=== PATIENT | female | born 1955 | race Caucasian/White ===

== ENCOUNTER 2017-10-21 08:22 | Emergency (ER) | payer SELFPAY, OTHER | END 2017-10-21 10:19 | disposition home or self-care (01) | LOC: ER 08:22 | DX: S89.91XA Unspecified injury of right lower leg, initial encounter (principal); W01.0XXA Fall on same level from slipping, tripping and stumbling without subsequent striking against object, initial encounter; Y93.89 Activity, other specified; Y92.89 Other specified places as the place of occurrence of the external cause; Y99.8 Other external cause status | CPT/HCPCS: 73562; 73700; 99284-25 ==

== ENCOUNTER 2018-03-16 08:00 | Emergency (ER) | payer OTHER | END 2018-03-16 08:46 | disposition home or self-care (01) | LOC: ER 08:46 | DX: M25.561 Pain in right knee (principal); E03.9 Hypothyroidism, unspecified | CPT/HCPCS: 99283 ==

== ENCOUNTER → 2018-08-21 | Outpatient (CLI) | payer OTHER ==
[2018-03-16 08:00] VITALS: BP 151/110
[~2018-08-21] MED LIST: DICL50TA2 PO; LEVO25TA55 PO; TRAM50TA PO
--- NOTE | 2018-08-21 12:40 | CARD ---
MR#: [id number] Date of Study: 08/21/2018 Ordering Physician: RONNIE DOMINIQUE, Referring Physician: RONNIE DOMINIQUE, Tech: Mandy Nevarez APPROVED REPORT EXAM: Two-dimensional and M-mode echocardiogram with Doppler and color Doppler. Other Information Quality : AverageHR: 113bpm INDICATION Palpitations Murmur RISK FACTORS Hypertension 2D DIMENSIONS RVDd2.7 (2.9-3.5cm)Left Atrium(2D)3.1 (1.6-4.0cm) IVSd0.8 (0.7-1.1cm)Aortic Root(2D)2.9 (2.0-3.7cm) LVDd4.4 (3.9-5.9cm)LVOT Diameter2.1 (1.8-2.4cm) PWd0.8 (0.7-1.1cm)LVDs2.1 (2.5-4.0cm) FS (%) 52.9 %SV74.1 ml LVEF(%)84.1 (>50%) Aortic Valve AoV Peak Rikki.145.4cm/sAoV VTI21.9cm AO Peak GR.8.5mmHgLVOT Peak Rikki.1.0cm/s LVOT VTI 17.30cmAO Mean GR.5mmHg NANDO (VMAX)0.51ea9SYA (VTI)2.62cm2 Mitral Valve MV E Inactpmh13.0cm/sMV DECEL TTVR518sd MV A Izjbvvll800.0cm/sMV ADN14of E/A Ratio0.6MVA (PHT)4.54cm2 TDI E/Lateral E'7.5E/Medial E'7.0 Pulmonary Valve PV Peak Ohsodcyo172.2cm/sPV Peak Grad.7mmHg Tricuspid Valve TR P. Hrbljpek626xa/sRAP TBTFQCMI8faVm TR Peak Gr.36oxDiFECU13erDh Pulmonary Vein S1 Oyoetdgn74.0cm/sD2 Tbpjanux93.2cm/s LEFT VENTRICLE The left ventricle is normal size. There is normal left ventricular wall thickness. The left ventricu lar systolic function is normal. The Ejection Fraction is 65%. There is normal LV segmental wall joyce on. Transmitral Doppler flow pattern is Grade I-abnormal relaxation pattern. RIGHT VENTRICLE The right ventricle is normal size. There is normal right ventricular wall thickness. The right ventr icular systolic function is normal. ATRIA The left atrium size is normal. The right atrium size is normal. The interatrial septum is intact wit h no evidence for an atrial septal defect or patent foramen ovale as noted on 2-D or Doppler imaging. AORTIC VALVE The aortic valve is normal in structure and function. Doppler and Color Flow revealed no significant aortic regurgitation. There is no significant aortic valvular stenosis. MITRAL VALVE The mitral valve is normal in structure and function. There is no evidence of mitral valve prolapse. There is no mitral valve stenosis. Doppler and Color-flow revealed trace mitral regurgitation. TRICUSPID VALVE The tricuspid valve is not well visualized. Doppler and Color Flow revealed trace tricuspid regurgita tion. There is no tricuspid valve stenosis. PULMONIC VALVE The pulmonic valve is not well visualized. Doppler and Color Flow revealed trace pulmonic valvular re gurgitation. There is no pulmonic valvular stenosis. GREAT VESSELS The aortic root is normal in size. The IVC is normal in size and collapses >50% with inspiration. PERICARDIAL EFFUSION There is no evidence of significant pericardial effusion. Critical Notification Critical Value: No <Conclusion> The left ventricular systolic function is normal. The Ejection Fraction is 65%. There is normal LV segmental wall motion. Transmitral Doppler flow pattern is Grade I-abnormal relaxation pattern. Trace mitral regurgitation. Trace tricuspid regurgitation. There is no evidence of significant pericardial effusion. Signed by : Luke Bauer, Electronically Approved : 08/21/2018 12:39:25
== END | disposition home or self-care (01) ==
LOC: ECHO 10:33
PROVIDERS: ATTEND Internal Medicine Cardiovascular Disease
DX: R01.1 Cardiac murmur, unspecified (principal); I10 Essential (primary) hypertension
CPT/HCPCS: 93306

== ENCOUNTER → 2019-11-19 | Outpatient (CLI) | payer OTHER ==
[2018-03-16 08:00] VITALS: BP 151/110
--- NOTE | 2019-11-19 16:40 | KCIC ---
EXAM: Chest, 2 views. HISTORY: Bronchitis. COMPARISON: 10/22/2019. FINDINGS: 2 views of the chest are obtained. There is right lobe pneumonia. There is no pleural effusion or pneumothorax. The heart is normal in size. IMPRESSION: Right middle lobe pneumonia. Follow-up to confirm resolution. Electronically signed by: Jackelin Santana MD (11/19/2019 4:37 PM) [id number]
== END | disposition home or self-care (01) ==
LOC: KCIC 14:48
PROVIDERS: ATTEND Internal Medicine
DX: J18.1 Lobar pneumonia, unspecified organism (principal)
CPT/HCPCS: 71046

== ENCOUNTER → 2019-12-13 | Outpatient (CLI) | payer OTHER ==
[2018-03-16 08:00] VITALS: BP 151/110
--- NOTE | 2019-12-13 09:30 | KCIC ---
CHEST PA LATERAL History: Right middle lobe pneumonia. Shortness of breath. Comparison: November 19, 2019 Findings: Decreased right middle lobe consolidation. No pleural effusion. No pneumothorax. Normal heart size. Impression: 1. Decreased right middle lobe consolidation. Recommend follow-up to ensure complete resolution. Electronically signed by: Flip Duarte DO (12/13/2019 9:27 AM) [id number]
== END | disposition home or self-care (01) ==
LOC: KCIC 08:54
PROVIDERS: ATTEND Internal Medicine
DX: J18.1 Lobar pneumonia, unspecified organism (principal)
CPT/HCPCS: 71046

== ENCOUNTER 2020-05-05 09:40 | Emergency (ER) | payer OTHER ==
[~2020-05-05] VITALS: Ht 160 cm; Wt 70.9 kg
[2020-05-05 10:10] VITALS: BP 136/66
--- NOTE | 2020-05-05 10:26 | PHYS DOC ---
Past Medical History Past Medical History: Other Additional Past Medical Histor: hypothyroid Past Surgical History: No Surgical History Smoking Status: Never Smoker Alcohol Use: None Drug Use: None General Adult EDM: Chief Complaint: PAIN ON URINATION HPI: HPI: 64-year-old female with a history of UTIs presents with pain on urination. it has been present for a few days. Worse when she urinates. No alleviating f actors. She denies abdominal pain vomiting or systemic symptoms. She denies fever. Review of systems negative for abdominal pain fever rashes headache chest pain shortness of breath. All other review of systems negative. ED course: 64-year-old female with a UTI discharged with Macrobid. Heart Score: Risk Factors: Risk Factors: DM, Current or recent (<one month) smoker, HTN, HLP, family history of CAD, obesity. Risk Scores: Score 0 - 3: 2.5% MACE over next 6 weeks - Discharge Home Score 4 - 6: 20.3% MACE over next 6 weeks - Admit for Clinical Observation Score 7 - 10: 72.7% MACE over next 6 weeks - Early Invasive Strategies Allergies: Allergies: Allergies Coded Allergies Type Severity Reaction Last Updated Verified No Known Drug Allergies 05/24/16 No Physical Exam: PE: Constitutional: Well developed, well nourished, no acute distress, non-toxic appearance. [] HENT: Normocephalic, atraumatic, bilateral external ears normal, oropharynx moist, no oral exudates, nose normal. [] Eyes: PERRLA, EOMI, conjunctiva normal, no discharge. [] Neck: Normal range of motion, no tenderness, supple, no stridor. [] Cardiovascular:Heart rate regular rhythm, no murmur [] Lungs & Thorax: Bilateral breath sounds clear to auscultation [] Abdomen: Bowel sounds normal, soft, no tenderness, no masses, no pulsatile masses. [] Skin: Warm, dry, no erythema, no rash. [] Back: No tenderness, no CVA tenderness. [] Extremities: No tenderness, no cyanosis, no clubbing, ROM intact, no edema. [] Neurologic: Alert and oriented X 3, normal motor function, normal sensory function, no focal deficits noted. [] Psychologic: Affect normal, judgement normal, mood normal. [] Current Patient Data: Vital Signs: Vital Signs Date Time Temp Pulse Resp B/P (MAP) Pulse Ox O2 Delivery O2 Flow Rate FiO2 05/05/20 10:10 97.6 78 18 136/66 (89) 99 Room Air 97.6 EKG: EKG: [] Radiology/Procedures: Radiology/Procedures: [] Course & Med Decision Making: Course & Med Decision Making Pertinent Labs and Imaging studies reviewed. (See chart for details) [] Dragon Disclaimer: Dragon Disclaimer: This electronic medical record was generated, in whole or in part, using a voice recognition dictation system. Departure Departure Impression: Primary Impression: UTI (urinary tract infection) Disposition: HOME, SELF-CARE Condition: STABLE Referrals: HAILY FOREMAN MD (PCP) Patient Instructions: Urinary Tract Infection Additional Instructions: Follow-up with your primary physician in 1 to 2 days. Return to the emergency department if you have any new or concerning findings. Scripts Nitrofurantoin Monohyd/M-Cryst (MACROBID 100 MG CAPSULE) 100 Mg Capsule 1 CAP PO BID, #10 CAP Prov: LES WEAVER MD 05/05/20 Justicifation of Admission Dx: Justifications for Admission: Justification of Admission Dx: N/A LES WEAVER MD May 05, 2020 10:26
[2020-05-05 10:36] LABS: BILIRUBIN,URINE NEGATIVE (NEG); CLARITY,URINE CLOUDY; COLOR,URINE YELLOW; NITRITE,URINE NEGATIVE (NEG); PH,URINE 6.5 (<5.0-8.0); PROTEIN,URINE 30 mg/dL (NEG-TRACE); UROBILINOGEN,URINE 0.2 mg/dL (0.2 mg/dL)
[2020-05-05 10:46] LABS: BACTERIA,URINE FEW /HPF (0-FEW); RBC,URINE OCC /HPF (0-2); WBC,URINE >40 /HPF (0-4)
[2020-05-05 10:47] LABS: SQUAMOUS EPITHELIAL CELL,UR OCC /LPF
[2020-05-05] MEDS ORDERED: NITR100C62 PO (10:50)
== END 2020-05-05 11:00 | disposition home or self-care (01) ==
LOC: ER 09:40
DX: N39.0 Urinary tract infection, site not specified (principal); R30.9 Painful micturition, unspecified; E03.9 Hypothyroidism, unspecified
CPT/HCPCS: 81001; 87077; 87086; 87186; 99283